=== PATIENT | male | born 1990 | race Caucasian/White ===

== ENCOUNTER 2020-07-24 19:31 | Emergency (ER) | payer SELFPAY ==
[~2020-07-24] VITALS: Ht 195.6 cm; Wt 158.0 kg
[2020-07-24 21:44] VITALS: BP 168/84
== END 2020-07-24 21:45 | disposition home or self-care (01) ==
LOC: M ED 19:31
DX: S01.511A Laceration without foreign body of lip, initial encounter (principal); Y04.8XXA Assault by other bodily force, initial encounter; Y92.89 Other specified places as the place of occurrence of the external cause; Y93.9 Activity, unspecified; Y99.0 Civilian activity done for income or pay; Z88.0 Allergy status to penicillin

== ENCOUNTER → 2021-05-27 | Outpatient (REF) | LOC: M LABSMTC 12:36 | PROVIDERS: ATTEND Family Medicine | DX: Z11.52 Encounter for screening for COVID-19 (principal) ==

== ENCOUNTER → 2023-10-11 | Outpatient (CLI) | payer BC | LOC: M RAD 07:44 | PROVIDERS: ATTEND Student in an Organized Health Care Education/Training Program | DX: R35.0 Frequency of micturition (principal); N35.919 Unspecified urethral stricture, male, unspecified site; K76.0 Fatty (change of) liver, not elsewhere classified; K86.89 Other specified diseases of pancreas ==

== ENCOUNTER → 2023-12-29 | Outpatient (CLI) | payer BC | LOC: M SLEEP HO 10:47 | PROVIDERS: ATTEND Nurse Practitioner Adult Health | DX: G47.30 Sleep apnea, unspecified (principal) ==

== ENCOUNTER 2024-02-29 07:00 | Outpatient (RCR) | payer BC | END 2024-03-01 | LOC: M PT 07:00 | PROVIDERS: ATTEND Surgery | DX: R20.2 Paresthesia of skin (principal) ==